=== PATIENT | female | born 1960 | race Asian ===

== ENCOUNTER 2020-07-03 11:22 | Inpatient (IN) | payer OTHER ==
[~2020-07-03] VITALS: Ht 172.7 cm; Wt 67.3 kg
[2020-07-03 11:25] VITALS: Ht 172.7 cm; Wt 67.3 kg
[2020-07-03 11:57] LABS: BASOPHIL % 0.1 % (0-2); PLATELET COUNT 246 x10^3mcL (130-400); RED CELL DISTRIBUTION WIDTH 12.5 % (11.5-14.5)
[2020-07-03 12:40] LABS: CALCIUM 10.2 mg/dL (8.5-10.1); CARBON DIOXIDE 24.8 mmol/L (21-32); CHLORIDE SERUM 102 mmol/L (98-107); CREATININE SERUM 0.8 mg/dL (0.6-1.0); GFR1 > 60 mL/min; GLUCOSE SERUM 126 mg/dL (74-106); POTASSIUM SERUM 3.4 mmol/L (3.5-5.1); SODIUM SERUM 136 mmol/L (136-145)
[2020-07-03 12:43] LABS: UA SPECIFIC GRAVITY >=1.030 (1.005-1.035); microscopic required? YES; urine erythrocyte 2+ (NEGATIVE)
[2020-07-03 12:51] LABS: ALKALINE PHOSPHATASE 74 U/L (46-116); ALT/SGPT 28 U/L (14-59); AST/SGOT 18 U/L (15-37); BILIRUBIN TOTAL 1.1 mg/dL (0.20-1.00)
[2020-07-03 12:52] LABS: TOTAL PROTEIN, SERUM 8.3 g/dL (6.4-8.2)
[2020-07-03 15:54] LABS: CHOLESTEROL/HDL RATIO 4.9
[2020-07-03 16:58] LABS: FREE T4 1.16 ng/dL (0.76-1.46); FREE THYROXINE INDEX 2.6 ug/dL (1.4-4.5); T4(THYROXINE) 8.2 ug/dL (4.7-13.3)
[2020-07-03 17:02] LABS: T3 TOTAL 1.41 ng/mL
[2020-07-03 20:41] VITALS: BP 138/88
[2020-07-04 06:13] VITALS: BP 117/69
[2020-07-04 06:39] LABS: BASOPHIL % 0.5 % (0-2); PLATELET COUNT 245 x10^3mcL (130-400); RED CELL DISTRIBUTION WIDTH 13.3 % (11.5-14.5)
[2020-07-04 07:04] LABS: CALCIUM 8.9 mg/dL (8.5-10.1); CARBON DIOXIDE 24.9 mmol/L (21-32); CHLORIDE SERUM 107 mmol/L (98-107); CREATININE SERUM 0.6 mg/dL (0.6-1.0); GFR1 > 60 mL/min; GLUCOSE SERUM 104 mg/dL (74-106); MAGNESIUM 2.1 mg/dL (1.8-2.4); PHOSPHOROUS 2.8 mg/dL (2.5-4.9); POTASSIUM SERUM 3.8 mmol/L (3.5-5.1); SODIUM SERUM 139 mmol/L (136-145)
[2020-07-04 08:06] VITALS: BP 143/73
[2020-07-04 12:25] VITALS: BP 144/78
[2020-07-04] MEDS ORDERED: ECO81 PO (13:33)
[2020-07-04] MEDS ORDERED: CLOPIDOGREL75 M1 PO (13:33)
[2020-07-04] MEDS ORDERED: LIPI10 PO (13:34)
[2020-07-04 13:57] VITALS: BP 140/78
== END 2020-07-04 14:29 | disposition home or self-care (01) | DRG 65 ==
LOC: ED 11:22 → DU 13:45
PROVIDERS: Emergency Medicine; ADMIT Family Medicine; ATTEND Family Medicine
DX: I63.9 Cerebral infarction, unspecified (principal); G81.94 Hemiplegia, unspecified affecting left nondominant side; E87.6 Hypokalemia; E78.5 Hyperlipidemia, unspecified; G51.0 Bell's palsy; I10 Essential (primary) hypertension; F41.9 Anxiety disorder, unspecified; R29.810 Facial weakness; Z20.828 Contact with and (suspected) exposure to other viral communicable diseases; R29.702 NIHSS score 2; Z79.899 Other long term (current) drug therapy; Z79.82 Long term (current) use of aspirin; Z91.048 Other nonmedicinal substance allergy status; Z63.5 Disruption of family by separation and divorce; Z90.721 Acquired absence of ovaries, unilateral
CPT/HCPCS: 84439; G0378; J7030; Q0092